=== PATIENT | male | born 1990 | race Caucasian/White ===

== ENCOUNTER 2016-12-08 15:27 | Emergency (ER) | payer OTHER ==
[2016-12-08 16:19] LABS: EOSINOPHIL 0.9 % (0-5); MCH 28.7 pg (25.0-31.0); MCHC 35.4 g/dL (32.0-36.0); MCV 81.1 fL (78.0-100.0); MONOCYTE 7.7 % (0-12); MPV 10.6 fL (6.0-9.5); NEUTROPHIL 67.4 % (41-80); PLT 271 K/uL (150-400); RBC 5.92 M/uL (4.70-6.00); RDW 12.5 % (11.5-14.0); WBC 8.8 K/uL (4.0-10.5)
[2016-12-08 16:39] LABS: ALBUMIN 4.5 g/dL (3.5-5.0); BILIRUBIN - TOTAL 0.5 mg/dL (0.1-1.0); CREATININE 0.8 mg/dL (0.7-1.2); GLOBULIN (CALCULATION) 2.7 g/dL (2.2-4.2); POTASSIUM 3.7 mmol/L (3.5-5.1); TOTAL PROTEIN 7.2 g/dL (6.4-8.3)
[2016-12-08 16:58] LABS: BILIRUBIN NEGATIVE (NEGATIVE); BLOOD NEGATIVE Ery/uL (NEGATIVE); CLARITY CLEAR (CLEAR); COLOR YELLOW (YELLOW); GLUCOSE (U) NORMAL (NORMAL); KETONE (U) NEGATIVE (NEGATIVE); LEUKOCYTES NEGATIVE Leu/uL (NEGATIVE); NITRITE NEGATIVE (NEGATIVE); PROTEIN 1+ mg/dL (NEGATIVE); SPECIFIC GRAVITY 1.025 (1.001-1.030); UROBILINOGEN 0.2 mg/dL (0.2-1.0)
[2016-12-08 17:08] LABS: SQUAMOUS EPITHELIAL CELLS RARE; URINARY WBC RARE
[2016-12-08 17:09] LABS: MUCOUS TRACE
== END 2016-12-08 17:27 | disposition home or self-care (01) ==
LOC: FER 15:27
PROVIDERS: Nurse Practitioner Family
DX: S39.012A Strain of muscle, fascia and tendon of lower back, initial encounter (principal); M25.562 Pain in left knee; I10 Essential (primary) hypertension; V49.40XA Driver injured in collision with unspecified motor vehicles in traffic accident, initial encounter; Y92.410 Unspecified street and highway as the place of occurrence of the external cause
CPT/HCPCS: 36415; 70450; 71020; 72050; 72072; 72110; 80053; 81001; 82150; 83690; 85025